=== PATIENT | male | born 1995 | race Hispanic/Latino ===

== ENCOUNTER 2023-11-15 18:41 | Emergency (ER) | payer SELFPAY ==
[2023-11-15 18:42] VITALS: BP 128/78; PULSE 88; RESP 17; TEMP 36.1; O2SAT 99; BMI 19.3
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
[2023-11-15 20:06] VITALS: BP 128/78; PULSE 82; RESP 18; TEMP 36.2; O2SAT 100
== END 2023-11-15 20:09 | disposition home or self-care (01) ==
PROVIDERS: Emergency Provider Emergency Medicine; Visit Provider Emergency Medicine
DX: Z71.1 Person with feared health complaint in whom no diagnosis is made (principal)
CPT/HCPCS: 99282